=== PATIENT | female | born 1960 | race Caucasian/White ===

== ENCOUNTER 2016-05-31 10:22 | Emergency (ER) | payer OTHER ==
[~2016-05-31] VITALS: Ht 165.1 cm; Wt 106.1 kg
[~2016-05-31 10:22] MED LIST: FLEXERIL10 MG PO; SPIRONOLACTONE100 MG PO; VIVELLE-DO0.05 MG/24 TOP
[2016-05-31 10:27] VITALS: BP 112/78
--- NOTE | 2016-05-31 11:32 | ED UPPER/LOWER EXTREMITY COMPL ---
History of Present Illness General Chief Complaint: Upper Extremity Injury Stated Complaint: R ELBOW PAIN Source: patient Exam Limitations: no limitations Vital Signs & Intake/Output Vital Signs & Intake/Output Vital Signs Date Time Temp Pulse Resp B/P Pulse O2 O2 Flow FiO2 Ox Delivery Rate 05/31 1027 98.0 91 20 112/78 96 Room Air Allergies Coded Allergies: Penicillins (UNKNOWN 05/10/15) Reconcile Medications CYCLOBENZAPRINE HCL (Flexeril) 10 MG TABLET 10 MG PO TID SPASM Estradiol (Vivelle-Dot) 0.05 MG/24 HOUR PATCH.TDSW 0.05 MG TOP TRANSDERMAL HORMONE REPLACEMENT (Reported) Naproxen (Naprosyn) 500 MG TABLET 1 TAB PO BID PRN pain Spironolactone 100 MG TAB 100 MG PO DAILY WATER RETENTION (Reported) Triage Note: PT TO ED C/O RIGHT ELBOW PAIN. PT HAS PRE-EXISTING INJURY TO RIGHT ELBOW, WAS WORKING IN [employer], WAS ASKED TO ASSIST WITH SOMETHING THAT WAS STUCK, AND WHILE ASSISTING HEARD A POP IN HER RIGHT EBLOW AND FELT PAIN. Triage Nurses Notes Reviewed? yes Onset: Just prior to arrival Duration: worse persistent since (this am) Timing: recent history Severity: moderate Severity Numbers: 8 Pain/Injury Location: Right: Elbow. Method of Injury: twisted Modifying Factors: Improves With: immobilization. Worsens With: movement. HPI: Patient is a 56-year-old female presenting to the emergency department with chief complaint of right elbow pain. She's been doing with right elbow pain for the past several months but it became worse this morning she was at work. Patient reports that she was pulling something with significant force and all of a sudden felt a pop in her right elbow. She's been experiencing moderate-to- severe pain since then. Pain is worse with movement. Denies taking anything prior to arrival. No numbness or tingling. Denies radiation of the pain. She was told to come be evaluated in the emergency department. Denies any other injuries. Past History Travel History Traveled to [place] past 21 day No Medical History Any Pertinent Medical History? see below for history Surgical History Surgical History: non-contributory Psychosocial History Who do you live with Patient/Self Services at Home None What is your primary language Turkmen Tobacco Use: Never used ETOH Use: denies use Illicit Drug Use: denies illicit drug use Family History Hx Contributory? No Review of Systems Review of Systems Constitutional: Reports: no symptoms. Comments Review of systems: See HPI, All other systems negative. Constitutional, no chills fever or weight loss HEENT: No visual changes no sore throat no congestion Cardiovascular: No chest pain ,palpitation Skin, no jaundice no rashes Respiratory: No dyspnea cough sputum or hemoptysis GI: No nausea no vomiting Muscle skeletal: no back pain, no neck pain, Neurologic: No numbness no confusion Psych: No stress anxiety Immunology: No splenectomy or history of AIDS Physical Exam Physical Exam General Appearance: well developed/nourished, no apparent distress, alert, awake , comfortable Comments: Well-developed well-nourished no apparent distress. HEENT: Atraumatic, extraocular motion intact Neck: Supple, no lymphadenopathy Back: Nontender Respiratory: No respiratory distress Extremities: No edema, tenderness palpation over the right lateral epicondyle with limited range of motion of the right elbow. No obvious edema or ecchymosis appreciated. No erythema. Radial pulses are 2+ bilaterally. Full range of motion of right hand, right wrist. Nontender to palpation over the right shoulder. Neuro: Alert and oriented x3, motor and sensory intact in upper extremities bilaterally. Psych: Mood affect normal, normal memory normal judgment. Progress Differential Diagnosis: contusion, dislocation, fracture, sprain, tendon injury, avulsion fracture Plan of Care: Orders Procedure Date/time Status Durable Medical Equipment 05/31 1306 Active Diagnostic Imaging: Viewed by Me: Radiology Read. Discussed w/RAD: Radiology Read. Radiology Impression: PATIENT: KENDAL ARTEAGA PRESENT AGE: 56 PATIENT ACCOUNT NO: [id number] : 60 LOCATION: [facility] ORDERING PHYSICIAN: MAGDALENA PARTIDA SERVICE DATE: 05/31/16 EXAM TYPE: RAD - XRY-ELBOW 3 OR MORE VIEWS, R EXAMINATION: XR ELBOW, RIGHT CLINICAL INFORMATION: Pain status post rotational injury. COMPARISON: None TECHNIQUE: AP, lateral, and oblique views of the right elbow. FINDINGS: No fracture or dislocation. Joint spaces are maintained. Alignment is maintained. No joint effusion. The soft tissues are unremarkable. IMPRESSION: Normal right elbow radiographs. DICTATED BY: DEDE TAFOYA,ANDREW DATE/TIME DICTATED:05/31/161199 MATHEMATICS DEPARTMENT CHAIR: GEOVANNA DATE/TIME TRANSCRIBED:05/31/161199 CONFIDENTIAL, DO NOT COPY WITHOUT APPROPRIATE AUTHORIZATION. Comments: On arrival patient patient requesting pain medication. Given Toradol IM. Patient will call fracture to rule out avulsion fracture. Patient placed in sling. No signs of fracture on x-ray. Likely strain. Patient with follow-up with orthopedics. Worker's Compensation filled out. Departure Departure Time of Disposition: 1207 Disposition: HOME OR SELF CARE Condition: Stable Clinical Impression Primary Impression: Elbow sprain Qualifiers: Encounter type: initial encounter Laterality: right Qualified Code: S53.401A - Unspecified sprain of right elbow, initial encounter Referrals: GUERA TAFOAY,GINA Rene (PCP/Family) Additional Instructions: Follow-up with Greg Arceo MD your orthopedic call to make an appointment. Wear sling for comfort. Take the proximal and as prescribed to help with inflammation and pain. Ice 20 minutes on 20 minutes off of the next several days. Return for worsening symptoms or concerns. Departure Forms: Customer Survey [employer] Employee Acc General Discharge Information Prescriptions: Current Visit Scripts Naproxen (Naprosyn) 1 TAB PO BID PRN pain #20 TAB Procedures Splinting Location: right elbow Manual Alignment Performed: No Pre-Made Type: velcro Splint: sling Splint Applied By: splint applied by other (nursing) Pre-Proc Neuro Vasc Exam: normal Post-Proc Neuro Vasc Exam: normal Progress: Tolerated procedure well.
--- NOTE | 2016-05-31 12:04 | RADIOLOGY REPORT ---
EXAMINATION: XR ELBOW, RIGHT CLINICAL INFORMATION: Pain status post rotational injury. COMPARISON: None TECHNIQUE: AP, lateral, and oblique views of the right elbow. FINDINGS: No fracture or dislocation. Joint spaces are maintained. Alignment is maintained. No joint effusion. The soft tissues are unremarkable. IMPRESSION: Normal right elbow radiographs.
[2016-05-31] MEDS ORDERED: NAPROSYN500 M1 PO (12:08)
== END 2016-05-31 12:21 ==
LOC: ERH 10:22
DX: S53.401A Unspecified sprain of right elbow, initial encounter (principal); X58.XXXA Exposure to other specified factors, initial encounter; Y92.9 Unspecified place or not applicable; Y93.9 Activity, unspecified
CPT/HCPCS: 73080-RT; 96372; J1885